=== PATIENT | female | born 1985 | race Caucasian/White ===

== ENCOUNTER 2016-06-01 17:44 | Outpatient (CLI) | payer OTHER ==
[~2016-06-01] VITALS: Ht 162.6 cm; Wt 84.0 kg
[2016-06-01] MEDS ORDERED: PRENTAB9 PO (18:01)
[2016-06-01 18:02] VITALS: BP 93/55
== END 2016-06-01 18:30 | disposition home or self-care (01) ==
LOC: M LDO 17:44
PROVIDERS: ATTEND Obstetrics & Gynecology
DX: O36.8130 Decreased fetal movements, third trimester, not applicable or unspecified (principal); Z3A.35 35 weeks gestation of pregnancy

== ENCOUNTER 2016-06-28 05:44 | Inpatient (IN) | payer OTHER ==
--- NOTE | 2016-06-25 02:11 | HPE ---
DATE OF SCHEDULED ADMISSION: 06/28/2016 This lady is having an elective repeat section with bilateral tubal ligation by Filshie clip on 06/28/2016. Her past history is at 39 weeks gestation in November 2004, had a primary section as an emergency, etiology unknown. 09/18/2006, at 39 weeks, had an elective repeat section, 7 pounds 3 ounces female. In November of 2011, at 39 weeks, had an elective repeat section, 7 pounds 5 ounces male. She suffers from celiac disease diagnosed in November 2010, and she has gluten issues. She had an intrauterine contraceptive device (IUCD) removed surgically in 2015 because of not being able to evaluate or find it on routine examination. Her last period was 09/29/2015. Her estimated date of confinement (EDC) by early ultrasound is 07/05/2016. Her lab work shows that she is A positive, HIV negative, hepatitis negative, RPR negative, rubella immune. Varicella immune. Pap normal. She is GBS positive in urine. Gonorrhea and chlamydia are negative. 1-hour glucose was 79. Her 28-week GTT 1-hour glucose was 108 and, as mentioned, she is GBS positive on urine. ON EXAMINATION: Today, she appears in no acute distress. Symphysis fundus height is 37, vertex presenting. heart is 138 and regular. Blood pressure is 119/63, respirations are 18, pulse is 78. The rest of the examination, she is normocephalic, atraumatic. Neck full range of motions. Pupils equal and reactive to light. Distal pulses are symmetric. No evidence of deep venous thrombosis (DVT), pulmonary embolism (PE), or superficial phlebitis. Chest is clear bilaterally to bases. No wheezes or rhonchi. Uterus is nontender. Symphysis fundus height is appropriate. She has a low transverse scar, and four quadrant bowel sounds are noted. She has no rashes or lesions or pruritus. No arthralgia. No myalgia. No complaints of cough, wheezes, shortness of breath, or dyspnea on exertion. No chest pain. She is not bleeding. She is neurologically complete. No incontinence, urgency, or frequency. No nausea, vomiting, diarrhea, or constipation. No diabetic issues. Her gynecological ([employer]) issues are negative. Her past medical history is celiac disease. PAST SURGICAL HISTORY: Is for sections and operative removal for an IUCD. FAMILY HISTORY: Is noncontributory. She does not smoke or drink or abuse drugs, and there is no domestic violence. After discussing the risks and benefits of a fourth section, including hemorrhage, infection, perforation, , reoperation, massive adhesions, remote possibility of hysterectomy, remote possibility of blood transfusion, remote possibility of laceration or admission to intensive care unit (NICU), patient expressed understanding of the risks and benefits. We then discussed the risks and benefits of tubal ligation, it being a permanent procedure using Filshie clips, and the risk of failure rate of less than 1%. We also discussed the possibility of not being able to complete the procedure because of massive adhesions, and we would have to defer and wait until 8-10 weeks . After expressing understanding of the above, patient signed and witnessed the consent form. She is booked for elective repeat section and tubal ligation 06/28/2016 at 0730 hours.
[2016-06-28] VITALS (10 sets, daily range): BP systolic 99–136; BP diastolic 60–87
[~2016-06-28] VITALS: Ht 162.6 cm; Wt 90.0 kg
[~2016-06-28 05:44] MED LIST: PRENTAB9 PO
[2016-06-28] MEDS ORDERED: ACETAMINOPHEN 650 MG SUPP PR ONE (06:00)
[2016-06-28] MEDS ORDERED: BICITRA 30ML SOLN UDC PO ONE (06:00)
[2016-06-28] MEDS ORDERED: BUPIVACAINE HCL 0.25% 10 ML VIAL INFIL ONE (06:00)
[2016-06-28] MEDS ORDERED: LR 800 ML IV SCH (06:00)
[2016-06-28] MEDS ORDERED: TYLE325T5 PO (06:12)
[2016-06-28 06:34] LABS: MEAN CORPUSCULAR HEMOGLOBIN 28.2 pg (27.0-33.0); MEAN CORPUSCULAR HGB CONC 32.8 g/dl (32.0-36.5); MEAN CORPUSCULAR VOLUME 86.2 fl (80.0-96.0); RED CELL DISTRIBUTION WIDTH 14.4 % (11.5-14.5); WHITE BLOOD COUNT 6.3 K/mm3 (4.0-10.0)
[2016-06-28] MEDS ORDERED: LR 1,000 ML IV SCH ×2 (07:00→09:30)
[2016-06-28] MEDS ORDERED: NALOXONE INJ 0.4 MG/1 ML VIAL (J2310) IV PRN ×2 (07:45)
[2016-06-28] MEDS ORDERED: METOCLOPRAMIDE INJ 10MG/2ML VIAL (J2765) IV PRN ×2 (07:45→09:30)
[2016-06-28] MEDS ORDERED: ONDANSETRON 4MG/2ML VIAL (J2405) IV PRN ×2 (07:45→09:30)
[2016-06-28] MEDS ORDERED: NALBUPHINE HCL 10 MG/ML AMP (J2300) IV PRN ×2 (07:45→09:30)
[2016-06-28 08:30] LABS: CORD GAS ABE V -3.3; CORD GAS HCO3 V 22.1 MEQ/L; CORD GAS O2 SAT V 55.4 %; CORD GAS PCO2 V 40.8 mmHg; CORD GAS PH V 7.351 UNITS; CORD GAS PO2 V 21.7 mmHg; CORD GAS SBC V 20.8 MEQ/L; CORD GAS TCO2 V 23.3 MEQ/L
[2016-06-28 08:32] LABS: CORD GAS ABE A -3.2; CORD GAS HCO3 A 24.1 MEQ/L; CORD GAS O2 SAT A 31.6 %; CORD GAS PCO2 A 51.9 mmHg; CORD GAS PH A 7.284 UNITS; CORD GAS PO2 A 16.2 mmHg; CORD GAS SBC A 20.3 MEQ/L; CORD GAS TCO2 A 25.7 MEQ/L
[2016-06-28] MEDS ORDERED: MIDAZOLAM INJ 2 MG/2 ML VIAL (J2250) As Ordered ONE (08:35)
[2016-06-28] MEDS ORDERED: fentaNYL 100 MCG/2 ML INJECTION (J3010) As Ordered ONE (08:35)
[2016-06-28] MEDS ORDERED: MORPHINE PRES-FREE INJ 10 MG/10 ML VIAL (J2274) As Ordered ONE (08:35)
[2016-06-28] MEDS ORDERED: KETOROLAC 60 MG/2 ML VIAL (J1885) As Ordered ONE (08:36)
[2016-06-28] MEDS ORDERED: ONDANSETRON 4MG/2ML VIAL (J2405) As Ordered ONE (08:36)
[2016-06-28] MEDS ORDERED: OXYTOCIN INJ 10 UNITS/ML VIAL (J2590) As Ordered ONE (08:39)
[2016-06-28] MEDS: PRENATAL VITAMIN TAB PO SCH (09:00)
[2016-06-28] MEDS ORDERED: RHOGAM 300 MCG (1500 IU) INJ (J2790) IM SCH (09:15)
[2016-06-28] MEDS ORDERED: DOCUSATE SODIUM 100 MG CAP PO PRN (09:15)
[2016-06-28] MEDS ORDERED: MEASLES,MUMPS,RUBELLA VACCINE INJ (MMR-II) (90707) SC SCH (09:15)
[2016-06-28] MEDS ORDERED: MOM 30ML SUSPENSION UDC PO PRN (09:15)
[2016-06-28] MEDS ORDERED: ANUSOL HC CREAM 30GM TOP PRN (09:15)
[2016-06-28] MEDS ORDERED: OXYTOCIN INJ 10 UNITS/ML VIAL (J2590) IV ONE (09:15)
[2016-06-28] MEDS ORDERED: fentaNYL 100 MCG/2 ML INJECTION (J3010) IV PRN (09:30)
[2016-06-28] MEDS ORDERED: PERCOCET 5MG/325MG TAB PO PRN (09:30)
[2016-06-28] MEDS ORDERED: MEPERIDINE INJ 25 MG/ML VIAL (J2175) IV PRN (09:30)
[2016-06-28] MEDS: IBUPROFEN 800 MG TAB PO SCH (16:01)
[2016-06-28] MEDS: PERCOCET 5MG/325MG TAB PO PRN (22:05)
[2016-06-29] VITALS (7 sets, daily range): BP systolic 120–181; BP diastolic 68–113
[2016-06-29] MEDS: IBUPROFEN 800 MG TAB PO SCH ×3 (00:40→15:54)
--- NOTE | 2016-06-29 06:43 | IPN ---
DATE: 06/29/2016 This lady is a 31-year-old 4, now para 4, admitted for repeat section, satisfied parity, tubal ligation by Filshie clip. She had massive adhesions in the intra-abdominal area. We were eventually able to find the tubes. We did do the tubal ligation with the Filshie clip. She delivered a live female , 8 pounds 4 ounces, 3744 grams, of 9 and 9 and one and five minutes respectively. Arterial pH 7.28, base excess -3.2, venous pH 7.35, base excess -3.3. On examination today, her blood pressure is 120/78, respirations 16, pulse 58, temperature 98.1. Her admitting hemoglobin was 10.4, hematocrit 31.8, and platelets are 183. day 1 hemoglobin is pending. On examination today, she is tired, basically did not sleep because the baby kept her up but she is normocephalic, atraumatic. Neck full range of motion. Pupils equal, round, reactive to light. Chest is clear bilaterally in the bases, no wheezes or rhonchi. Distal pulses are symmetric. No evidence of deep venous thrombosis (DVT), pulmonary embolus (PE) or superficial phlebitis. Uterus is two below. Lochia is moderate. Four quadrant bowel sounds are noted. She still has her catheter in. Apparently she had not diuresed yet, then the catheter was remained. She has no rashes or lesions or pruritus. No arthralgia or myalgia. No complaints of cough, wheezes, shortness of breath or dyspnea on exertion. No bleeding. Neuro complete. No incontinence. No nausea, vomiting, diarrhea or constipation. Today we are planning on removing the Valera catheter. She is going to have a shower, mobilizing and our plan of management is to discharge tomorrow with medications. In summary, we have a term gestation repeat section, satisfied parity, tubal ligation, day 1.
[2016-06-29 07:20] LABS: MEAN CORPUSCULAR HEMOGLOBIN 28.6 pg (27.0-33.0); MEAN CORPUSCULAR HGB CONC 33.4 g/dl (32.0-36.5); MEAN CORPUSCULAR VOLUME 85.8 fl (80.0-96.0); RED CELL DISTRIBUTION WIDTH 14.7 % (11.5-14.5); WHITE BLOOD COUNT 7.3 K/mm3 (4.0-10.0)
[2016-06-29] MEDS: PRENATAL VITAMIN TAB PO SCH (07:41)
[2016-06-29] MEDS: PERCOCET 5MG/325MG TAB PO PRN ×4 (07:42→20:05)
[2016-06-29] MEDS ORDERED: ADACEL/BOOSTRIX VACCINE (DIPHTH/PERTUSS/ACELL/TETANUS)0.5ML SYR (90715) IM SCH (09:00)
[2016-06-30] MEDS: IBUPROFEN 800 MG TAB PO SCH ×2 (00:21→08:20)
[2016-06-30] MEDS: PERCOCET 5MG/325MG TAB PO PRN ×3 (00:22→08:21)
[2016-06-30 02:00] VITALS: BP 132/80
[2016-06-30 06:00] VITALS: BP 133/85
[2016-06-30] MEDS: PRENATAL VITAMIN TAB PO SCH (08:19)
[2016-06-30] MEDS ORDERED: IBUP-1114 PO (11:29)
[2016-06-30] MEDS ORDERED: OXYC1TAB23 PO (11:29)
[2016-06-30] MEDS ORDERED: COLA100C PO (11:29)
== END 2016-06-30 12:00 | disposition home or self-care (01) | DRG 765 ==
LOC: M LDI 05:44 → M OBS 11:33
PROVIDERS: ADMIT Obstetrics & Gynecology; ATTEND Obstetrics & Gynecology
PROC: 0UL70CZ Occlusion of Bilateral Fallopian Tubes with Extraluminal Device, Open Approach (ICD-10-PCS; 2016-06-28)
PROC: 10D00Z1 Extraction of Products of Conception, Low, Open Approach (ICD-10-PCS; principal; 2016-06-28 10:02)
DX: O34.211 Maternal care for low transverse scar from previous cesarean delivery (principal); O26.62 Liver and biliary tract disorders in childbirth; Z37.0 Single live birth; K90.0 Celiac disease; Z3A.40 40 weeks gestation of pregnancy; Z30.2 Encounter for sterilization